=== PATIENT | male | born 2000 | race African-American/Black ===

== ENCOUNTER 2018-08-10 20:20 | Emergency (ER) | payer SELFPAY ==
--- NOTE | 2018-08-10 20:50 | EDM.PDOC ---
ED HPI GENERAL MEDICAL PROBLEM - General Chief Complaint: ENT Problem Stated Complaint: EAR PROBLEM Time Seen by Provider: 08/10/18 20:29 Source of Information: Reports: Patient, Family (Mother), RN Notes Reviewed History Limitations: Reports: No Limitations - History of Present Illness INITIAL COMMENTS - FREE TEXT/NARRATIVE: The patient states that he has had decreased hearing in his left ear, and bilateral ear pain for the past 4 days, [place]. No recent sore throat. No recent fever. The patient does not have a PCP. Bilateral Ear Pain Score (Numeric/FACES): 7 - Related Data Allergies Allergy/AdvReac Type Severity Reaction Status Date / Time No Known Allergies Allergy Verified 08/10/18 20:29 Home Meds: Home Meds Albuterol [Ventolin HFA] 2 puff INH Q6HR PRN 08/10/18 [History] Hydrocort/Neomycin/Polymyxin B [Jmabgkcj-Qkmwnzjjs-PB Otic Susp] 4 drop EARLF Q6H #1 bottle 08/10/18 [Rx] Past Medical History Respiratory History: Reports: Asthma (suspected) Musculoskeletal History: Reports: Fracture (left elbow) - Past Surgical History Dermatological Surgical History: Reports: Other (See Below) (Pilonidal cyst excision) Social & Family History - Tobacco Use Smoking Status *Q: Never Smoker - Alcohol Use Alcohol Use History: No - Recreational Drug Use Recreational Drug Use: No - Living Situation & Occupation Living situation: Reports: , with Spouse, with Family (7 family members) Occupation: Employed (Lifts lumber) ED ROS ENT - Review of Systems Review Of Systems: ROS reveals no pertinent complaints other than HPI. ED EXAM, ENT - Physical Exam Exam: See Below Exam Limited By: No Limitations General Appearance: Alert, WD/WN, No Apparent Distress Eye Exam: Bilateral Eye: EOMI, Normal Inspection Ears: Other (The right external auditory canal is partially occluded by dry cerumen, however, I am able to see the tympanic membrane, which appears to be normal. There is no tenderness to tugging on the auricle. The left external auditory canal is completely occluded by dry cerumen, therefore the tympanic membrane is not visible. There is very minimal erythema/swelling to the visible portion of the external auditory canal, however, there is tenderness to tugging on the left auricle.) Nose: Normal Inspection, Normal Mucousa, No Blood Mouth/Throat: Normal Inspection, Normal Gums, Normal Lips, Normal Oropharynx, Normal Teeth Head: Atraumatic, Normocephalic Neck: Normal Inspection, Supple, Non-Tender, Full Range of Motion. No: Lymphadenopathy (L), Lymphadenopathy (R) Course - Vital Signs Last Recorded V/S: Last Vital Signs Temp 36.8 C 08/10/18 20:25 Pulse 73 08/10/18 20:25 Resp 18 08/10/18 20:25 BP 130/79 08/10/18 20:25 Pulse Ox 100 08/10/18 20:25 - Re-Assessments/Exams Free Text/Narrative Re-Assessment/Exam: 08/10/18 20:48 The patient's right external auditory canal is partially occluded by cerumen, but I am able to see the tympanic membrane, which appears to be normal. The patient's left external auditory canal, however, is completely occluded with dry cerumen, therefore I'm unable to see the tympanic membrane. I do not see any significant swelling or erythema of the portion of the canal that is visible , however, the patient reports tenderness to tugging on the auricle, suggesting otitis externa. I have asked Elenita ANDRES to irrigate both external canals. 08/10/18 21:54 Following irrigation, the cerumen appears to have broken into pieces, but is still present in both canals. I am still unable to get a good look at the left tympanic membrane. I attempted to clean out the left ear canal, however, we have only one ear curette available at this time, and it did not do a very good job. The patient likely has mild to moderate left otitis externa. I will discharge him home with a prescription for Cortisporin otic, to be instilled for 7 days. I will also refer him to ENT, in case his symptoms worsen or fail to improve. Departure - Departure Time of Disposition: 21:55 Disposition: Home, Self-Care 01 Condition: Good Clinical Impression: Left otitis externa - Discharge Information *PRESCRIPTION DRUG MONITORING PROGRAM REVIEWED*: Not Applicable *COPY OF PRESCRIPTION DRUG MONITORING REPORT IN PATIENT DENA: Not Applicable Prescriptions: Hydrocort/Neomycin/Polymyxin B [Lneqruox-Bvwheoedv-QO Otic Susp] 4 drop EARLF Q6H #1 bottle Instructions: Otitis Externa, Hwiu-wn-Vjfe Referrals: PCP,None [Primary Care Provider] - Arley Bryan MD [Ordering Only Provider] - Forms: ED Department Discharge Additional Instructions: You were seen in the emergency room for left ear pain for 4 days, after [place]. Based on your history and physical examination, your most likely suffering from mild to moderate left otitis externa. A prescription for the antibiotic ear drops Cortisporin otic has been sent to the [facility], located at [address] [place] [address] Instill 4 drops of Cortisporin otic into your left ear 3-4 times a day (every 6- 8 hours), for 7 days. If your pain fails to improve, or worsens, please follow-up with the ENT Dr. Arley Bryan, in [place]. If any other problems, please do not hesitate to return to the ER.
== END 2018-08-10 22:07 | disposition home or self-care (01) ==
LOC: JD.ED 20:20
DX: H60.92 Unspecified otitis externa, left ear (principal)
CPT/HCPCS: 69209; 99282

== ENCOUNTER 2018-10-01 09:36 | Emergency (ER) | payer SELFPAY ==
[2018-10-01] MEDS ORDERED: Lidocaine 1% with EPINEPHrine 1:100,000 20 ML MDV INJECT ONE (09:57)
[2018-10-01] MEDS ORDERED: EPINEPHrine/Lidocaine/Tetracai 3 ML ML TOP ONE (09:57)
--- NOTE | 2018-10-01 11:18 | EDM.PDOC ---
ED HPI GENERAL MEDICAL PROBLEM - General Chief Complaint: Skin Complaint Stated Complaint: ABSCESS Time Seen by Provider: 10/01/18 09:44 Source of Information: Reports: Patient History Limitations: Reports: No Limitations - History of Present Illness INITIAL COMMENTS - FREE TEXT/NARRATIVE: The patient presents with a pilonidal cyst. This has been going on for a few days. He has pain and he cannot sit down. He feels feverish and he has nausea and some vomiting. He had this before when he was 3 and it had to be opened up. He has no abdominal pain. Onset: Gradual Duration: Day(s): Location: Reports: Other (Pilinodal cyst) Quality: Reports: Sharp Severity: Severe Improves with: Reports: None Worsens with: Reports: None Associated Symptoms: Reports: Fever/Chills, Nausea/Vomiting. Denies: Chest Pain , Cough, Headaches, Shortness of Breath Buttock Pain Score (Numeric/FACES): 9 - Related Data Allergies Allergy/AdvReac Type Severity Reaction Status Date / Time No Known Allergies Allergy Verified 08/10/18 20:29 Home Meds: Home Meds Albuterol [Ventolin HFA] 2 puff INH Q6HR PRN 08/10/18 [History] Hydrocodone/Acetaminophen [Hydrocodon-Acetaminophen 5-325] 1 - 2 each PO Q6HR PRN #20 tablet 10/01/18 [Rx] Sulfamethoxazole/Trimethoprim [Bactrim Ds Tablet] 1 each PO BID #20 tablet 10/01 [Rx] Past Medical History - Past Health History Medical/Surgical History: Denies Medical/Surgical History HEENT History: Reports: None Cardiovascular History: Reports: None Respiratory History: Reports: Asthma Gastrointestinal History: Reports: None Genitourinary History: Reports: None Musculoskeletal History: Reports: Fracture Neurological History: Reports: None Psychiatric History: Reports: None Endocrine/Metabolic History: Reports: None Hematologic History: Reports: None Immunologic History: Reports: None Oncologic (Cancer) History: Reports: None - Infectious Disease History Infectious Disease History: Reports: None - Past Surgical History Head Surgeries/Procedures: Reports: None Dermatological Surgical History: Reports: Other (See Below) Social & Family History - Tobacco Use Smoking Status *Q: Never Smoker - Caffeine Use Caffeine Use: Reports: None - Recreational Drug Use Recreational Drug Use: No - Living Situation & Occupation Living situation: Reports: , with Spouse, with Family (7 family members) Occupation: Employed (Lifts lumber) ED ROS GENERAL - Review of Systems Review Of Systems: See Below Constitutional: Reports: No Symptoms HEENT: Reports: No Symptoms Respiratory: Reports: No Symptoms Cardiovascular: Reports: No Symptoms Endocrine: Reports: No Symptoms GI/Abdominal: Reports: No Symptoms : Reports: No Symptoms Musculoskeletal: Reports: No Symptoms, Other (Pilinodal cyest) ED EXAM, SKIN/RASH Exam: See Below Exam Limited By: No Limitations General Appearance: Alert, No Apparent Distress Ears: Normal External Exam Nose: Normal Inspection Head: Atraumatic, Normocephalic Neck: Normal Inspection Respiratory/Chest: No Respiratory Distress, Lungs Clear, Normal Breath Sounds Cardiovascular: Regular Rate, Rhythm, No Edema, No Murmur GI/Abdominal: Soft, Non-Tender, No Organomegaly, No Mass Rectal (Males) Exam: Other (Pilinodal cyst with erythema and edema and fluctuance.) Extremities: Normal Inspection ED SKIN PROCEDURES - I&D Site: Pilinodal Skin Prep: Other (Chlorprep) Local Anesthesia: Lidocaine: 1% with EPI (and LET) Local Anesthetic Volume: 2cc Area Incised With: 11 Blade Drainage: Purulent, Large Amount Packed With: 1/2 in. Iodoform Sterile Dressing: Adhesive Dressing Complications: No Course - Vital Signs Last Recorded V/S: Last Vital Signs Temp 97 F 10/01/18 09:43 Pulse 81 10/01/18 09:43 Resp 16 10/01/18 09:43 BP 157/69 H 10/01/18 09:43 Pulse Ox 99 10/01/18 09:43 - Orders/Labs/Meds Orders: Active Orders 24 hr Category Date Time Status CULTURE ANAEROBIC + SMEAR [RM] Stat Lab 10/01/18 11:05 Ordered Meds: Medications Discontinued Medications Generic Name Dose Route Start Last Admin Trade Name Freq PRN Reason Stop Dose Admin Lidocaine/Epinephrine 20 ml 10/01/18 09:57 10/01/18 10:21 Xylocaine 1% With Epinephrine 1:100,000 INJECT 10/01/18 09:58 20 ml ONETIME ONE Administration Lidocaine/Tetracaine 3 ml 10/01/18 09:57 10/01/18 10:21 Let Soln TOP 10/01/18 09:58 3 ml ONETIME ONE Administration - Re-Assessments/Exams Free Text/Narrative Re-Assessment/Exam: 10/01/18 11:23 I put some LET on the area and anaesthetized it with lidocaine. I got lots of purulent drainage. He has systemic symptoms so I will get him on bactrim. I also called Dr Hastings and she will see him tomorrow. Departure - Departure Time of Disposition: 11:25 Disposition: Home, Self-Care 01 Condition: Good Clinical Impression: Pilonidal cyst with abscess - Discharge Information *PRESCRIPTION DRUG MONITORING PROGRAM REVIEWED*: No *COPY OF PRESCRIPTION DRUG MONITORING REPORT IN PATIENT DENA: No Prescriptions: Hydrocodone/Acetaminophen [Hydrocodon-Acetaminophen 5-325] 1 - 2 each PO Q6HR PRN #20 tablet PRN Reason: Pain Sulfamethoxazole/Trimethoprim [Bactrim Ds Tablet] 1 each PO BID #20 tablet Referrals: PCP,None [Primary Care Provider] - Elizabeth Patiño MD [Physician] - 1 Day Additional Instructions: Take the bactim 2 times per day for 10 days. Follow up with Dr Hastings tomorrow. Take the hydrocodone as needed for pain. Please return if you are worse. - My Orders Last 24 Hours: My Active Orders 10/01/18 11:05 CULTURE ANAEROBIC + SMEAR [RM] Stat - Assessment/Plan Last 24 Hours: My Active Orders 10/01/18 11:05 CULTURE ANAEROBIC + SMEAR [RM] Stat
== END 2018-10-01 11:44 | disposition home or self-care (01) ==
LOC: JD.ED 09:36
DX: L05.01 Pilonidal cyst with abscess (principal); J45.909 Unspecified asthma, uncomplicated; Z79.899 Other long term (current) drug therapy
CPT/HCPCS: 10080; 87075; 87181; 87205; 99283-25

== ENCOUNTER 2020-07-08 10:50 | Emergency (ER) | payer SELFPAY ==
--- NOTE | 2020-07-08 11:13 | EDM.PDOC ---
ED [facility] GENERAL MEDICAL PROBLEM - General Chief Complaint: Skin Complaint Stated Complaint: ABSCESS ON BUTTOCK Time Seen by Provider: 07/08/20 10:59 Source of Information: Reports: Patient History Limitations: Reports: No Limitations - History of Present Illness INITIAL COMMENTS - FREE TEXT/NARRATIVE: The patient presents with pain and swelling to the tail bone area. He has no fever or chills. This has been going on for about a week or two. He said this happened about a year and a half ago. He had it drained here and now it is back. Onset: Gradual Duration: Week(s): Location: Reports: Other (tail bone area) Quality: Reports: Sharp Severity: Mild Improves with: Reports: Other (standing) Worsens with: Reports: Other (sitting) Associated Symptoms: Reports: No Other Symptoms Buttock Pain Score (Numeric/FACES): 5 - Related Data Allergies Allergy/AdvReac Type Severity Reaction Status Date / Time No Known Allergies Allergy Verified 07/08/20 10:56 Home Meds: Home Meds . [No Known Home Meds] 07/08/20 [History] Past Medical History - Past Health History Medical/Surgical History: Denies Medical/Surgical History HEENT History: Reports: None Cardiovascular History: Reports: None Respiratory History: Reports: Asthma Other Respiratory History: hasnt used inhaler for about 4 years Gastrointestinal History: Reports: None Genitourinary History: Reports: None Musculoskeletal History: Reports: Fracture Neurological History: Reports: None Psychiatric History: Reports: None Endocrine/Metabolic History: Reports: None Hematologic History: Reports: None Immunologic History: Reports: None Oncologic (Cancer) History: Reports: None - Infectious Disease History Infectious Disease History: Reports: None - Past Surgical History Head Surgeries/Procedures: Reports: None HEENT Surgical History: Reports: None GI Surgical History: Reports: None Male Surgical History: Reports: None Dermatological Surgical History: Reports: Other (See Below) Social & Family History - Family History Family Medical History: No Pertinent Family History - Tobacco Use Tobacco Use Status *Q: Never Tobacco User - Caffeine Use Caffeine Use: Reports: None - Recreational Drug Use Recreational Drug Use: Yes Drug Use in Last 12 Months: Yes Recreational Drug Type: Reports: Marijuana/Hashish Recreational Drug Use Frequency: Socially - Living Situation & Occupation Living situation: Reports: , with Spouse, with Family (7 family members) Occupation: Employed (Lifts lumber) [facility] - Review of Systems Review Of Systems: See Below Constitutional: Reports: No Symptoms HEENT: Reports: No Symptoms Respiratory: Reports: No Symptoms Cardiovascular: Reports: No Symptoms Endocrine: Reports: No Symptoms GI/Abdominal: Reports: No Symptoms : Reports: No Symptoms Skin: Reports: Other (Tail bone pain and swelling) ED EXAM, SKIN/RASH Exam: See Below Exam Limited By: No Limitations General Appearance: Alert, No Apparent Distress Ears: Normal External Exam Nose: Normal Inspection Head: Atraumatic, Normocephalic Neck: Normal Inspection Respiratory/Chest: No Respiratory Distress Extremities: Other (Edema but no erythema to the upper gluteal fold) Course - Vital Signs Last Recorded V/S: Last Vital Signs Temp 97.8 F 07/08/20 10:58 Pulse 95 07/08/20 10:58 Resp 18 07/08/20 10:58 BP 138/73 07/08/20 10:58 Pulse Ox 100 07/08/20 10:58 - Re-Assessments/Exams Free Text/Narrative Re-Assessment/Exam: 07/08/20 11:16 I did an US and there is fluid. I feel this is a pilonidal cyst. It does not look infected at this point. I am holding off giving antibiotics. I feel he would be better served seeing Dr Christie our surgeon and have it opened and the capsule removed. Departure - Departure Time of Disposition: 11:20 Disposition: Home, Self-Care 01 Condition: Good Clinical Impression: Pilonidal cyst - Discharge Information *PRESCRIPTION DRUG MONITORING PROGRAM REVIEWED*: Not Applicable *COPY OF PRESCRIPTION DRUG MONITORING REPORT IN PATIENT DENA: Not Applicable Referrals: PCP,None [Primary Care Provider] - Vicente Christie MD [Physician] - 1 Week Forms: ED Department Discharge Additional Instructions: Follow up with Dr Christie this week. Call his clinic to make an appointment. Please return if you are worse. Sepsis Event Note (ED) - Evaluation Sepsis Screening Result: No Definite Risk - Focused Exam Vital Signs: Vital Signs Temp Pulse Resp BP Pulse Ox 07/08/20 10:58 97.8 F 95 18 138/73 100
== END 2020-07-08 11:32 | disposition home or self-care (01) ==
LOC: JD.ED 10:50
DX: L05.91 Pilonidal cyst without abscess (principal); J45.909 Unspecified asthma, uncomplicated
CPT/HCPCS: 99282

== ENCOUNTER 2022-07-17 12:58 | Emergency (ER) | payer SELFPAY ==
[2022-07-17] MEDS ORDERED: Lidocaine/EPINEPHrine/Tetracaine Soln 1 ML TOP ONE (13:40)
[2022-07-17] MEDS ORDERED: Lidocaine 1% with EPINEPHrine 1:100,000 20 ML MDV INJECT ONE (13:41)
== END 2022-07-17 15:32 | disposition home or self-care (01) ==
LOC: JD.ED 12:58
DX: L02.415 Cutaneous abscess of right lower limb (principal); J45.909 Unspecified asthma, uncomplicated; Z88.0 Allergy status to penicillin
CPT/HCPCS: 10061; 87070; 87075; 87077; 87186; 87205; 99283; J3490

== ENCOUNTER 2023-09-01 01:46 | Emergency (ER) | payer SELFPAY ==
[2023-09-01] MEDS: Lidocaine 1% 10 ML MDV INJECT ONE (03:30)
== END 2023-09-01 04:10 | disposition home or self-care (01) ==
LOC: JD.ED 01:46 → MERGE 01:46 → JD.ED 04:10
DX: L02.31 Cutaneous abscess of buttock (principal)
CPT/HCPCS: 10060; 99282-25; J3490

== ENCOUNTER 2023-09-02 06:58 | Emergency (ER) | payer SELFPAY ==
[2023-09-02] MEDS: Metoclopramide 10 MG/2 ML SDV IVPUSH ONE (07:50)
[2023-09-02] MEDS: HYDROmorphone 1 MG/ML Syringe IVPUSH ONE (07:54)
[2023-09-02 07:56] LABS: BASOPHILS PERCENT AUTO 0.3 % (0.0-1.0); EOSINOPHILS PERCENT AUTO 0.1 % (0.0-6.0); HEMATOCRIT 46.7 % (42.0-52.0); HEMOGLOBIN 14.9 gm/dl (14.0-18.0); IMMATURE GRAN ABSOLUTE AUTO 0.04 K/mm3 (0.00-0.05); IMMATURE GRAN PERCENT AUTO 0.4 % (0.0-0.4); LYMPHOCYTES ABSOLUTE AUTO 1.5 K/mm3 (1.0-4.8); LYMPHOCYTES PERCENT AUTO 16.4 % (24.0-44.0); MEAN CORPUSCULAR HEMOGLOBIN 21.8 pg (28.0-32.0); MEAN CORPUSCULAR HGB CONC 31.9 g/dl (32.0-36.0); MEAN CORPUSCULAR VOLUME 68.5 fl (83.0-99.0); MONOCYTES ABSOLUTE AUTO 1.4 K/mm3 (0.0-0.8); MONOCYTES PERCENT AUTO 14.7 % (0.0-8.0); NEUTROPHILS ABSOLUTE AUTO 6.3 K/mm3 (1.8-7.7); NEUTROPHILS PERCENT AUTO 68.1 % (41.0-71.0); PLATELET COUNT,PLT 234 K/mm3 (150-400); RED BLOOD CELL COUNT 6.82 M/mm3 (4.52-5.90); WHITE BLOOD CELL COUNT,WBC 9.25 K/mm3 (3.9-11.3)
[2023-09-02] MEDS: Sodium Chloride 0.9% 10 ML Syringe FLUSH PRN (07:57)
[2023-09-02] MEDS: Dextrose 5%-0.9% NaCl 1,000 ML IV SCH (07:57)
[2023-09-02] MEDS: Iopamidol 612 MG/ML 100 ML Bottle IVPUSH ONE (08:02)
[2023-09-02 08:26] LABS: A/G RATIO 0.7 (1-2); ALBUMIN 3.2 g/dl (3.4-5.0); ANION GAP 16.3 (5-15); BILIRUBIN TOTAL 0.4 mg/dL (0.2-1.0); C-REACTIVE PROTEIN 11.15 mg/dL (<0.30); CALCIUM 9.3 mg/dL (8.5-10.1); EST CRCL DRUG DOSING (CG) 110.2 mL/min; MAGNESIUM 1.6 mg/dL (1.8-2.4); POTASSIUM,K 3.3 mEq/L (3.5-5.1); PROTEIN TOTAL,TP 8.1 g/dl (6.4-8.2)
[2023-09-02 08:29] LABS: LACTIC ACID 1.2 mmol/L (0.4-2.0)
[2023-09-02 08:35] LABS: SLIDE REVIEW ABNORMAL SMEAR
[2023-09-02] MEDS: Propofol 200 MG/20 ML SDV IVPUSH ONE (08:43)
[2023-09-02] MEDS: Lidocaine 1% with EPINEPHrine 1:100,000 20 ML MDV INJECT ONE (08:43)
== END 2023-09-02 09:45 | disposition home or self-care (01) ==
LOC: MERGE 06:58 → JD.ED 06:58
DX: L02.212 Cutaneous abscess of back [any part, except buttock and flank] (principal); Z88.0 Allergy status to penicillin
CPT/HCPCS: 10080; 36415; 72193; 80053; 83605; 83735; 85025; 86140; 96361; 96374; 96375; 99152; 99153; 99283; J1170; J2704; J2765; J3490; J7042; Q9967

== ENCOUNTER 2024-04-03 00:35 | Emergency (ER) | payer SELFPAY | END 2024-04-03 00:49 | disposition left against medical advice (07) | LOC: JD.ED 00:35 | DX: Z53.21 Procedure and treatment not carried out due to patient leaving prior to being seen by health care provider (principal) ==

== ENCOUNTER 2024-04-24 18:25 | Emergency (ER) | payer SELFPAY ==
[2024-04-24] MEDS: Acetaminophen 325 MG Tab PO ONE (19:59)
[2024-04-24] MEDS: Ibuprofen 800 MG Tab PO ONE (19:59)
[2024-04-24] MEDS: oxyCODONE 5 MG Tab PO ONE (19:59)
[2024-04-24] MEDS ORDERED: Sodium Chloride 0.9% 45 ML IV SCH (20:00)
[2024-04-24] MEDS: Sodium Chloride 0.9% 10 ML Syringe FLUSH PRN (20:28)
[2024-04-24] MEDS: Iopamidol 755 Mg/ML 100 ML Bottle IVPUSH ONE (20:28)
== END 2024-04-24 22:39 | disposition home or self-care (01) ==
LOC: JD.ED 18:25
DX: K61.1 Rectal abscess (principal); Z88.0 Allergy status to penicillin
CPT/HCPCS: 46040; 74177; 87070; 87075; 87205; 99284; A9270; Q9967; 99283